=== PATIENT | male | born 1970 | race Caucasian/White ===

== ENCOUNTER 2017-04-30 09:15 | Emergency (ER) | payer BC ==
[2017-04-30 09:29] VITALS: BP 144/82; PULSE 64; TEMP 98.2; BMI 24.3
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
== END 2017-04-30 11:05 | disposition home or self-care (01) ==
LOC: JERFT 09:15
PROC: 0JQM0ZZ Repair Left Upper Leg Subcutaneous Tissue and Fascia, Open Approach (ICD-10-PCS; principal; 2017-04-30)
DX: S71.112A Laceration without foreign body, left thigh, initial encounter (principal); V19.3XXA Pedal cyclist (driver) (passenger) injured in unspecified nontraffic accident, initial encounter; Y92.482 Bike path as the place of occurrence of the external cause; Y93.55 Activity, bike riding; Y99.8 Other external cause status
CPT/HCPCS: 99282-25

== ENCOUNTER 2019-08-30 08:59 | Emergency (ER) | payer BC ==
[2019-08-30 09:06] VITALS: BP 128/83; PULSE 60; TEMP 98.9; BMI 25.0
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
[2019-08-30] MEDS ORDERED: DIPHTH,PERTUSS(ACELL),TET 0.5 ML DISP.SYRIN IM ONE ×2 (10:39→10:43)
== END 2019-08-30 11:10 | disposition home or self-care (01) ==
LOC: FER 08:59
PROC: 3E0234Z Introduction of Serum, Toxoid and Vaccine into Muscle, Percutaneous Approach (ICD-10-PCS; principal; 2019-08-30)
DX: Z04.3 Encounter for examination and observation following other accident (principal); J30.2 Other seasonal allergic rhinitis; E78.5 Hyperlipidemia, unspecified
CPT/HCPCS: 70450-TC; 72125-TC; 90715; 99284-25